=== PATIENT | male | born 1970 | race Caucasian/White ===

== ENCOUNTER 2024-05-22 20:22 | Inpatient (IN) | payer MEDICAID ==
[~2024-05-22] VITALS: Ht 175.3 cm; Wt 96.2 kg
[2024-05-22 20:22] VITALS: BP 141/71; PULSE 58; RESP 18; TEMP 36.114; O2SAT 95
[2024-05-22 21:00] VITALS: BP 141/71; PULSE 58; RESP 18; TEMP 36.14
[2024-05-22] MEDS ORDERED: ACETAMINOPHEN 325MG TABLET PO PRN (21:45)
[2024-05-22] MEDS ORDERED: ONDANSETRON HCL 4MG TABLET PO PRN (21:45)
[2024-05-22] MEDS ORDERED: DOCUSATE SODIUM 100MG CAPSULE PO PRN (21:45)
[2024-05-22] MEDS ORDERED: ENOXAPARIN 40MG/0.4ML SYR SUBCUT NR (22:00)
[2024-05-22] MEDS ORDERED: NON FORMULARY MED XX SCH (22:00)
[2024-05-22] MEDS: ATORVASTATIN CALCIUM 40MG TABLET PO SCH (22:27)
[2024-05-23] MEDS: PANTOPRAZOLE 40MG DR TABLET PO SCH (06:02)
[2024-05-23 06:06] LABS: BASOPHILS % 0.6 % (0.0-2.0); CALCIUM 9.4 mg/dL (8.7-10.4); CARBON DIOXIDE 24 mEq/L (21-32); CHLORIDE 108 mEq/L (98-107); EOSINOPHILS % 2.5 % (0.0-5.0); HEMATOCRIT. 48.2 % (42.0-52.0); HEMOGLOBIN. 16.5 g/dL (14.0-18.0); LYMPHOCYTES % 27.8 % (20.0-50.0); MEAN CORPUSCULAR HEMOGLOBIN 33.2 pg (28.0-32.0); MEAN CORPUSCULAR HGB CONC 34.2 g/dL (31.0-37.0); MEAN CORPUSCULAR VOLUME 97.1 fL (80.0-94.0); MEAN PLATELET VOLUME 9.2 fl (7.4-10.4); MONOCYTES % 10.3 % (2.0-8.0); NEUTROPHILS % 58.8 % (40.0-76.0); PLATELET 228 x1000/uL (130-400); POTASSIUM 3.8 mEq/L (3.5-5.1); RED BLOOD CELL COUNT 4.96 mill/uL (4.7-6.1); RED CELL DISTRIBUTION WIDTH 12.8 % (11.6-14.6); SODIUM 137 mEq/L (136-145); WHITE BLOOD COUNT 7.8 x1000/uL (4.5-11.0)
[2024-05-23 06:11] LABS: CREATININE 0.7 mg/dL (0.6-1.3); GLUCOSE 88 mg/dL (70-105); IRON 122 ug/dL (65-175)
[2024-05-23 06:12] LABS: TRIGLYCERIDE 113 mg/dL (0-150); UREA NITROGEN BLOOD 16 mg/dL (9-23)
[2024-05-23 06:13] LABS: ALANINE AMINOTRANSFERASE 110 IU/L (10-49); ALBUMIN 4.4 g/dL (3.2-4.8); ASPARTATE AMINOTRANSFERASE 58 IU/L (<34); BILIRUBIN TOTAL 0.9 mg/dL (0.1-1.0); CHOLESTEROL 89 mg/dL (<200); LDL CHOLESTEROL 44 mg/dL (5-100)
[2024-05-23 06:14] LABS: HDL CHOLESTEROL 23 mg/dL (>55); PHOSPHORUS 4.4 mg/dL (2.5-4.9)
[2024-05-23 06:15] LABS: PROTEIN TOTAL 7.1 g/dL (6.0-8.3); T4 FREE 1.24 ng/dL (0.89-1.76); TOTAL IRON BINDING CAPACITY 231 ug/dl (250-425)
[2024-05-23 06:16] LABS: THYROID STIMULATING HORMONE 1.78 uIU/mL (0.55-4.78)
[2024-05-23 06:53] LABS: FERRITIN 691 ng/mL (22-322)
[2024-05-23 06:54] LABS: VITAMIN B12 SERUM 646 pg/mL (211-911)
[2024-05-23 08:00] VITALS: BP 130/94; PULSE 61; RESP 18; TEMP 36.28068; O2SAT 95
[2024-05-23] MEDS: ASPIRIN 81MG TABLET PO SCH (08:31)
[2024-05-23] MEDS: ENOXAPARIN 30MG/0.3ML SYR SUBCUT SCH (08:31)
[2024-05-23] MEDS: METOPROLOL SUCCINATE 25MG ER TABLET PO SCH (08:31)
[2024-05-23] MEDS: CLOPIDOGREL 75MG TABLET PO SCH (08:32)
[2024-05-23] MEDS: AMLODIPINE 5MG TABLET PO SCH (08:32)
[2024-05-23] MEDS ORDERED: METOPROLOL SUCCINATE 50MG ER TABLET PO SCH (09:00)
[2024-05-23] MEDS ORDERED: ENOXAPARIN 30MG/0.3ML SYR SUBCUT SCH (09:00)
[2024-05-23] MEDS: DOCUSATE SODIUM 100MG CAPSULE PO SCH (12:02)
[2024-05-23 20:00] VITALS: BP 148/73; PULSE 66; RESP 19; TEMP 36.50292; O2SAT 97
[2024-05-24 08:00] VITALS: BP 137/92; PULSE 64; RESP 20; TEMP 36.28068; O2SAT 97
[2024-05-25] MEDS: BISACODYL 5MG TABLET PO PRN (06:34)
[2024-05-25 08:00] VITALS: BP 142/79; PULSE 62; RESP 19; TEMP 37.00296; O2SAT 98
[2024-05-25] MEDS: FAMOTIDINE 20MG TABLET PO SCH (08:48)
[2024-05-25 20:00] VITALS: BP 130/68; PULSE 68; RESP 18; TEMP 36.72516; O2SAT 99
[2024-05-26 08:00] VITALS: BP 145/76; PULSE 65; RESP 20; TEMP 36.3918; O2SAT 98
[2024-05-26 20:00] VITALS: BP 133/69; PULSE 62; RESP 18; TEMP 36.33624; O2SAT 97
[2024-05-27 08:00] VITALS: BP 129/63; PULSE 56; RESP 18; TEMP 36.3918; O2SAT 98
[2024-05-27] MEDS: VANCOMYCIN 250MG/5ML ORAL SYRINGE PO SCH (18:00)
[2024-05-27] MEDS ORDERED: VANCOMYCIN HCL 1GM VIAL PO SCH (18:00)
[2024-05-27 18:59] VITALS: PULSE 64; PULSE 85; RESP 18; RESP 20; TEMP 97
[2024-05-27 20:00] VITALS: BP 97/69; PULSE 59; RESP 20; TEMP 36.3918; O2SAT 97
[2024-05-28 08:00] VITALS: BP 134/78; PULSE 64; RESP 17; TEMP 36.114; O2SAT 96
[2024-05-28 20:00] VITALS: BP 153/78; PULSE 72; RESP 19; TEMP 35.66952; O2SAT 97
[2024-05-29 08:00] VITALS: BP 119/64; PULSE 52; RESP 18; TEMP 36.3918; O2SAT 98
[2024-05-29 20:00] VITALS: BP 113/80; PULSE 58; RESP 17; TEMP 36.50292; O2SAT 97
[2024-05-30 08:00] VITALS: BP 135/83; PULSE 58; RESP 18; TEMP 36.16956; O2SAT 99
[2024-05-30 09:10] LABS: FOLATE HEMATOCRIT 46.6 % (37.5-51.0)
[2024-05-30 20:00] VITALS: BP 130/65; PULSE 56; RESP 17; TEMP 36.22512; O2SAT 97
[2024-05-31 08:50] VITALS: BP 141/73; PULSE 55; RESP 20; TEMP 36.72516; O2SAT 95
[2024-05-31 20:00] VITALS: BP 115/63; PULSE 52; RESP 20; TEMP 36.22512; O2SAT 99
[2024-06-01 07:37] LABS: CALCIUM 9.8 mg/dL (8.7-10.4); CARBON DIOXIDE 24 mEq/L (21-32); CHLORIDE 108 mEq/L (98-107); SODIUM 138 mEq/L (136-145)
[2024-06-01 07:42] LABS: CREATININE 0.7 mg/dL (0.6-1.3)
[2024-06-01 07:43] LABS: GLUCOSE 85 mg/dL (70-105); UREA NITROGEN BLOOD 11 mg/dL (9-23)
[2024-06-01 07:45] LABS: BASOPHILS % 0.6 % (0.0-2.0); EOSINOPHILS % 3.2 % (0.0-5.0); HEMATOCRIT. 48.1 % (42.0-52.0); HEMOGLOBIN. 16.1 g/dL (14.0-18.0); LYMPHOCYTES % 26.8 % (20.0-50.0); MEAN CORPUSCULAR HEMOGLOBIN 33.2 pg (28.0-32.0); MEAN CORPUSCULAR HGB CONC 33.5 g/dL (31.0-37.0); MEAN CORPUSCULAR VOLUME 99.2 fL (80.0-94.0); MEAN PLATELET VOLUME 9.2 fl (7.4-10.4); MONOCYTES % 7.9 % (2.0-8.0); NEUTROPHILS % 61.5 % (40.0-76.0); PHOSPHORUS 4.2 mg/dL (2.5-4.9); PLATELET 214 x1000/uL (130-400); RED BLOOD CELL COUNT 4.85 mill/uL (4.7-6.1); RED CELL DISTRIBUTION WIDTH 12.7 % (11.6-14.6); WHITE BLOOD COUNT 7.9 x1000/uL (4.5-11.0)
[2024-06-01 08:00] VITALS: BP 129/90; PULSE 51; RESP 20; TEMP 36.6696; O2SAT 98
[2024-06-01 20:00] VITALS: BP 143/83; PULSE 62; RESP 20; TEMP 36.50292; O2SAT 96
[2024-06-02 08:00] VITALS: BP 133/89; PULSE 61; RESP 18; TEMP 36.72516; TEMP 36.78072; O2SAT 97
[2024-06-02 20:00] VITALS: BP 127/67; PULSE 61; RESP 18; TEMP 36.50292; O2SAT 97
[2024-06-03 08:00] VITALS: BP 156/81; PULSE 65; RESP 18; TEMP 36.50292; O2SAT 96
[2024-06-03 20:00] VITALS: BP 118/60; PULSE 56; RESP 18; TEMP 36.72516; O2SAT 96
[2024-06-04 08:00] VITALS: BP 155/92; PULSE 65; RESP 18; TEMP 36.05844; O2SAT 98
[2024-06-04 20:00] VITALS: BP 133/65; PULSE 62; RESP 18; TEMP 36.28068; O2SAT 98
[2024-06-05 20:00] VITALS: BP 126/85; PULSE 60; RESP 18; TEMP 36.28068; O2SAT 100
[2024-06-06 08:00] VITALS: BP 131/86; PULSE 60; RESP 18; TEMP 36.114; O2SAT 100
[2024-06-06 20:00] VITALS: BP 133/67; PULSE 60; RESP 18; TEMP 36.28068; O2SAT 98
[2024-06-07 08:00] VITALS: BP 125/79; PULSE 69; RESP 18; TEMP 36.22512; O2SAT 97
[2024-06-07] MEDS: CLONIDINE 0.1MG TABLET PO PRN (09:17)
[2024-06-07] MEDS: ASCORBIC ACID 500 MG TABLET PO SCH (14:36)
[2024-06-07] MEDS: ZINC SULFATE 220 MG ( 50 ) CAPSULE PO SCH (14:37)
[2024-06-07 20:00] VITALS: BP 129/51; PULSE 51; RESP 18; TEMP 36.114; O2SAT 96
[2024-06-08 08:00] VITALS: BP 151/88; PULSE 56; RESP 18; TEMP 36.3918; O2SAT 100
[2024-06-08 20:00] VITALS: BP 119/57; PULSE 58; RESP 18; TEMP 36.61404; O2SAT 96
[2024-06-09 08:00] VITALS: BP 132/54; PULSE 58; RESP 18; TEMP 36.114; O2SAT 99
[2024-06-09 20:00] VITALS: BP 103/59; PULSE 58; RESP 18; TEMP 36.55848; O2SAT 97
[2024-06-10 08:00] VITALS: BP 151/74; PULSE 58; RESP 18; TEMP 36.3918; O2SAT 99
[2024-06-10 20:00] VITALS: BP 159/76; PULSE 60; RESP 18; TEMP 36.78072; O2SAT 100
[2024-06-11 08:00] VITALS: BP 140/77; PULSE 67; RESP 16; TEMP 36.78072; O2SAT 99
[2024-06-11 20:00] VITALS: BP 135/69; PULSE 70; RESP 18; TEMP 36.22512; O2SAT 93
[2024-06-12 08:00] VITALS: BP 147/96; PULSE 74; RESP 20; TEMP 36.72516; O2SAT 74; O2SAT 99
[2024-06-12 20:00] VITALS: BP 107/59; PULSE 53; RESP 19; TEMP 36.28068; O2SAT 100
[2024-06-13 08:00] VITALS: BP 126/80; PULSE 58; RESP 20; TEMP 36.114; O2SAT 98
[2024-06-13 19:39] VITALS: BP 156/76; PULSE 63; RESP 18; TEMP 37.00296; O2SAT 98
[2024-06-14 08:00] VITALS: BP 143/92; PULSE 61; RESP 18; TEMP 36.72516; O2SAT 98
[2024-06-14 20:00] VITALS: BP 113/57; PULSE 60; RESP 18; TEMP 36.3918; O2SAT 99
[2024-06-15 08:00] VITALS: BP 96/56; PULSE 64; RESP 18; TEMP 36.3918; O2SAT 100
[2024-06-15 20:00] VITALS: BP 134/78; PULSE 60; RESP 18; TEMP 36.61404; O2SAT 98
[2024-06-16 08:00] VITALS: BP 175/78; PULSE 69; RESP 20; TEMP 36.50292; O2SAT 100
[2024-06-16 20:00] VITALS: BP 123/60; PULSE 56; RESP 18; TEMP 36.50292; O2SAT 98
[2024-06-17 08:00] VITALS: BP 131/68; PULSE 50; RESP 18; TEMP 36.22512; O2SAT 100
[2024-06-17 12:16] VITALS: BP 131/68; PULSE 50; TEMP 97.2; O2SAT 100
[2024-06-17] MEDS ORDERED: METO-396 PO (12:45)
[2024-06-17] MEDS ORDERED: ASCO500T20 PO (12:45)
[2024-06-17] MEDS ORDERED: AMLO5TAB88 PO (12:45)
[2024-06-17] MEDS ORDERED: LIP40 PO (12:45)
[2024-06-17] MEDS ORDERED: CLOP-31 PO (12:45)
[2024-06-17] MEDS ORDERED: ZINC1CAP2 PO (12:45)
[2024-06-18] MEDS ORDERED: AMLODIPINE 10MG TABLET PO SCH (09:00)
== END 2024-06-17 13:25 | disposition home health service (06) | DRG 45 ==
PROVIDERS: ADMIT Psychiatry & Neurology Neurology; ATTEND Internal Medicine
DX: I63.511 Cerebral infarction due to unspecified occlusion or stenosis of right middle cerebral artery (principal); I69.354 Hemiplegia and hemiparesis following cerebral infarction affecting left non-dominant side; R47.1 Dysarthria and anarthria; I10 Essential (primary) hypertension; R13.10 Dysphagia, unspecified; R41.4 Neurologic neglect syndrome; R41.89 Other symptoms and signs involving cognitive functions and awareness; R53.1 Weakness; F17.210 Nicotine dependence, cigarettes, uncomplicated; I69.398 Other sequelae of cerebral infarction
CPT/HCPCS: 36415; 80048; 80053; 80061; 82607; 82728; 82747; 83036; 83540; 83550; 83735; 84100; 84439; 84443; 85014; 85025; 87015; 87045; 87427; 87449; 92523; 92610; 93970; 97110; 97112; 97116; 97150; 97162; 97166; 97530; 97535; 97542; A4565; A6261; J1650; J3370